=== PATIENT | male | born 1975 | race African-American/Black ===

== ENCOUNTER 2024-07-23 11:42 | Emergency (ER) | payer SELFPAY ==
[~2024-07-23] VITALS: Ht 175.3 cm; Wt 80.0 kg
[2024-07-23 11:44] VITALS: O2SAT 100
[2024-07-23 11:45] VITALS: BP 114/69; PULSE 117; RESP 16; TEMP 98.2; O2SAT 98
== END 2024-07-23 15:39 | disposition home or self-care (01) ==
LOC: ER 11:42
DX: M79.641 Pain in right hand (principal); M79.672 Pain in left foot
CPT/HCPCS: 73130; 73630; 99284